=== PATIENT | female | born 1980 | race Two or more races ===

== ENCOUNTER 2017-02-12 13:41 | Emergency (ER) | payer MEDICAID ==
[~2017-02-12] VITALS: Ht 154.9 cm; Wt 82.6 kg
[~2017-02-12 13:41] MED LIST: ALBUPOW26 XX; AMOX500T3 PO; OMEP20CA74 OR
[2017-02-12 14:12] VITALS: BP 132/78
== END 2017-02-12 16:07 | disposition home or self-care (01) ==
LOC: ER 13:43
DX: L98.9 Disorder of the skin and subcutaneous tissue, unspecified (principal); B99.8 Other infectious disease; J45.909 Unspecified asthma, uncomplicated; Z79.899 Other long term (current) drug therapy

== ENCOUNTER 2020-11-22 06:42 | Emergency (ER) | payer MEDICAID ==
[~2020-11-22] VITALS: Ht 152.4 cm; Wt 93.4 kg
[2020-11-22 07:33] VITALS: BP 142/88
== END 2020-11-22 07:48 | disposition home or self-care (01) ==
LOC: ER 06:42
DX: I10 Essential (primary) hypertension (principal); J45.909 Unspecified asthma, uncomplicated; Z76.0 Encounter for issue of repeat prescription